=== PATIENT | male | born 1950 | race Caucasian/White ===

== ENCOUNTER → 2016-09-11 | Outpatient (CLI) | payer MEDICARE, OTHER ==
[~2016-09-11] MED LIST: ASPI81TA85 PO; CIPR500T89 PO; DOCU10CA PO; PERC5TAB6 PO
== END ==
LOC: M WUC 15:32
PROVIDERS: ATTEND Urology
DX: C61 Malignant neoplasm of prostate (principal)

== ENCOUNTER → 2016-12-05 | Outpatient (CLI) | payer MEDICARE, OTHER ==
[2016-12-11 00:19] LABS: BABESIOSIS LEVEL IGG <1:10 (Neg:<1:10); BABESIOSIS LEVEL IGM <1:10 (Neg:<1:10); Lyme Disease IgG/IgM Antibodie <0.91 ISR (0.00-0.90); Lyme Disease IgM Ab Quantitati <0.80 index (0.00-0.79)
== END ==
LOC: M LAB 17:52
PROVIDERS: ATTEND Physician Assistant
DX: J06.9 Acute upper respiratory infection, unspecified (principal)

== ENCOUNTER → 2016-12-11 | Outpatient (CLI) | payer MEDICARE, OTHER | LOC: M WUC 13:40 | PROVIDERS: ATTEND Nurse Practitioner Women's Health | DX: R97.21 Rising PSA following treatment for malignant neoplasm of prostate (principal); Z85.46 Personal history of malignant neoplasm of prostate ==

== ENCOUNTER → 2016-12-17 | Outpatient (REF) | payer MEDICARE, OTHER | LOC: M SMT 16:55 | PROVIDERS: ATTEND Urology | DX: C61 Malignant neoplasm of prostate (principal) | CPT/HCPCS: 81001; G0463 ==

== ENCOUNTER 2017-09-24 10:49 | Emergency (ER) | payer OTHER, MEDICARE, SELFPAY | END 2017-09-24 13:45 | disposition home or self-care (01) | LOC: M ED 10:49 | DX: Z04.1 Encounter for examination and observation following transport accident (principal); S16.1XXA Strain of muscle, fascia and tendon at neck level, initial encounter; V43.62XA Car passenger injured in collision with other type car in traffic accident, initial encounter; Z79.82 Long term (current) use of aspirin; Z88.2 Allergy status to sulfonamides; Z88.1 Allergy status to other antibiotic agents; Z88.8 Allergy status to other drugs, medicaments and biological substances | CPT/HCPCS: 72125 ==

== ENCOUNTER → 2017-12-17 | Outpatient (CLI) | payer MEDICARE, OTHER ==
[2017-12-17 13:51] LABS: PROSTATIC SPECIFIC AG MONITOR < 0.01 NG/ML (< 4.0)
== END ==
LOC: M SMT 12:01
DX: C61 Malignant neoplasm of prostate (principal)
CPT/HCPCS: 84153

== ENCOUNTER → 2018-06-19 | Outpatient (REF) | payer MEDICARE, OTHER ==
[2018-06-19 18:37] LABS: PROSTATIC SPECIFIC AG MONITOR < 0.0 NG/ML (< 4.0)
== END ==
LOC: M SMT 17:14
DX: Z85.46 Personal history of malignant neoplasm of prostate (principal)
CPT/HCPCS: 84153

== ENCOUNTER → 2018-12-18 | Outpatient (CLI) | payer MEDICARE, OTHER ==
[~2018-12-18] MED LIST changes: +CIPR-249 PO; -CIPR500T89 PO; +CYCL5TAB PO; +DIAZ2TAB PO; +PERC5TAB12 PO; -PERC5TAB6 PO
== END ==
LOC: M SMT 09:52
PROVIDERS: ATTEND Nurse Practitioner Women's Health
DX: Z85.46 Personal history of malignant neoplasm of prostate (principal)

== ENCOUNTER → 2018-12-25 | Outpatient (REF) | payer MEDICARE, OTHER ==
[2018-12-25 13:32] LABS: APPEARANCE, URINE CLEAR (CLEAR); BACTERIA, URINE AUTO NEGATIVE (NEGATIVE); BILIRUBIN, URINE AUTO NEGATIVE (NEGATIVE); BLOOD, URINE BLOOD NEGATIVE (NEGATIVE); COLOR, URINE YELLOW (YELLOW); GLUCOSE, URINE (UA) AUTO NEGATIVE (NEGATIVE); KETONE, URINE AUTO NEGATIVE (NEGATIVE); LEUKOCYTE ESTERASE, URINE AUTO NEGATIVE (NEGATIVE); MUCUS, URINE SMALL (NEGATIVE); NITRITE, URINE AUTO NEGATIVE (NEGATIVE); PROTEIN, URINE AUTO NEGATIVE (NEGATIVE); RBC, URINE AUTO 0 /HPF (0-3); SPECIFIC GRAVITY URINE AUTO 1.023 (1.002-1.035); SQUAMOUS EPITHELIAL CELL UR AU 0 /HPF (0-6); UROBILINOGEN, URINE AUTO 0.2 mg/dL (0.0-2.0); WBC, URINE AUTO 1 /HPF (0-3)
== END ==
LOC: M SMT 13:11
PROVIDERS: ATTEND Nurse Practitioner Women's Health
DX: R35.0 Frequency of micturition (principal)
CPT/HCPCS: 81001; 87086; G0463

== ENCOUNTER → 2019-05-01 | Outpatient (REF) | payer MEDICARE, OTHER ==
[2019-05-01 13:25] LABS: SYNOVIAL FLUID COLOR RED (YELLOW)
[2019-05-01 13:38] LABS: CRYSTALS, BODY FLUID NONE SEEN (NONE SEEN)
[2019-05-01 13:42] LABS: URIC ACID, BODY FLUID 5.3 MG/DL (NOT ESTABLISHED)
[2019-05-01 13:43] LABS: BODY FLUID RHEUMATOID SCREEN NEGATIVE (NEGATIVE); MUCIN CLOT TEST NO CLOT (4+)
[2019-05-01 13:45] LABS: SOURCE, BODY FLUID OTHER
== END ==
LOC: M LAB REF 13:08
PROVIDERS: ATTEND Physician Assistant Surgical
DX: M70.22 Olecranon bursitis, left elbow (principal); M17.2 Bilateral post-traumatic osteoarthritis of knee; M23.222 Derangement of posterior horn of medial meniscus due to old tear or injury, left knee

== ENCOUNTER → 2019-06-16 | Outpatient (CLI) | payer MEDICARE, OTHER | LOC: M SMT 14:37 | PROVIDERS: ATTEND Nurse Practitioner Women's Health | DX: Z85.46 Personal history of malignant neoplasm of prostate (principal) ==

== ENCOUNTER → 2019-12-17 | Outpatient (CLI) | payer MEDICARE, OTHER | LOC: M WUC 11:49 | PROVIDERS: ATTEND Nurse Practitioner Women's Health | DX: Z85.46 Personal history of malignant neoplasm of prostate (principal) ==

== ENCOUNTER → 2020-05-06 | Outpatient (REF) | payer MEDICARE, OTHER ==
[~2020-05-06] MED LIST changes: -ASPI81TA85 PO; +ASPI81TA86 PO
[2020-05-06 14:14] LABS: APPEARANCE, URINE CLEAR (CLEAR); BACTERIA, URINE AUTO NEGATIVE (NEGATIVE); BILIRUBIN, URINE AUTO NEGATIVE (NEGATIVE); BLOOD, URINE BLOOD NEGATIVE (NEGATIVE); COLOR, URINE YELLOW (YELLOW); GLUCOSE, URINE (UA) AUTO NEGATIVE (NEGATIVE); KETONE, URINE AUTO NEGATIVE (NEGATIVE); LEUKOCYTE ESTERASE, URINE AUTO NEGATIVE (NEGATIVE); MUCUS, URINE SMALL (NEGATIVE); NITRITE, URINE AUTO NEGATIVE (NEGATIVE); PROTEIN, URINE AUTO NEGATIVE (NEGATIVE); RBC, URINE AUTO 1 /HPF (0-3); SPECIFIC GRAVITY URINE AUTO 1.025 (1.002-1.035); SQUAMOUS EPITHELIAL CELL UR AU 0 /HPF (0-6); UROBILINOGEN, URINE AUTO 0.2 mg/dL (0.0-2.0); WBC, URINE AUTO 0 /HPF (0-3)
== END ==
LOC: M SMT 13:21
PROVIDERS: ATTEND Nurse Practitioner Women's Health
DX: R30.0 Dysuria (principal)

== ENCOUNTER → 2020-12-13 | Outpatient (REF) | payer MEDICARE, OTHER | LOC: M PLALAB 12:42 | PROVIDERS: ATTEND Nurse Practitioner Women's Health | DX: Z85.46 Personal history of malignant neoplasm of prostate (principal) ==

== ENCOUNTER → 2021-12-22 | Outpatient (CLI) | payer MEDICARE, OTHER | LOC: M WUC 13:12 | PROVIDERS: ATTEND Nurse Practitioner Women's Health | DX: Z85.46 Personal history of malignant neoplasm of prostate (principal) ==

== ENCOUNTER → 2022-12-20 | Outpatient (CLI) | payer MEDICARE, OTHER | LOC: M LAB 17:23 | PROVIDERS: ATTEND Nurse Practitioner Women's Health | DX: Z85.46 Personal history of malignant neoplasm of prostate (principal) ==

== ENCOUNTER → 2023-12-26 | Outpatient (REF) | payer MEDICARE, OTHER | LOC: M LABWUC 11:52 | PROVIDERS: ATTEND Physician Assistant | DX: Z85.46 Personal history of malignant neoplasm of prostate (principal) ==

== ENCOUNTER → 2024-09-16 | Outpatient (CLI) | payer MEDICARE, OTHER ==
[~2024-09-16] MED LIST changes: -CYCL5TAB PO; +CYCL5TAB4 PO
== END ==
LOC: M SLEEP 20:00
PROVIDERS: ATTEND Physician Assistant
DX: R40.0 Somnolence (principal); R06.83 Snoring

== ENCOUNTER 2025-04-09 05:56 | Day surgery (SDC) | payer MEDICARE, OTHER ==
[~2025-04-09] VITALS: Ht 167.6 cm; Wt 91.5 kg
[~2025-04-09 05:56] MED LIST changes: +FAMO40TA3 PO; +LATA1DRO OU; +MULT80TA PO
[2025-04-09] MEDS: LR 1,000 ML IV SCH (07:00)
[2025-04-09] MEDS ORDERED: LIDOCAINE 2% 100 MG/5 ML SDV (FOR ANES.) As Ordered ONE (07:20)
[2025-04-09] MEDS ORDERED: LIDOCAINE 5% OINT 30 GM TUBE As Ordered ONE (07:20)
[2025-04-09] MEDS ORDERED: dexAMETHasone 4 MG/ML 1 ML VIAL As Ordered ONE (07:20)
[2025-04-09] MEDS ORDERED: ONDANSETRON 4MG 2ML VIAL As Ordered ONE (07:20)
[2025-04-09] MEDS ORDERED: MIDAZOLAM INJ 2 MG/2 ML VIAL As Ordered ONE (07:21)
[2025-04-09] MEDS: ceFAZolin SOD 2 GM IV ONCE IV ONE (07:48)
[2025-04-09] MEDS: ISOVUE-300 61% 100 ML VIAL As Ordered ONE (07:59)
[2025-04-09] MEDS ORDERED: ACETAMINOPHEN 1000MG/100ML IV BAG As Ordered ONE (07:59)
[2025-04-09] MEDS ORDERED: PERCOCET 5MG/325MG TAB PO PRN (09:10)
[2025-04-09] MEDS ORDERED: OXYB5TAB14 PO (09:22)
[2025-04-09] MEDS ORDERED: OXYC1TAB23 PO (09:22)
[2025-04-09 10:11] VITALS: TEMP 97.9; O2SAT 99
[2025-04-09] MEDS: ONDANSETRON 4MG 2ML VIAL IV PRN (10:55)
[2025-04-09] MEDS: KETOROLAC 30 MG/ML 1 ML VIAL IV ONE (10:56)
[2025-04-09 11:32] VITALS: BP 158/80
== END 2025-04-09 11:31 | disposition home or self-care (01) ==
LOC: M SDC 05:56
PROVIDERS: ATTEND Urology
DX: N13.1 Hydronephrosis with ureteral stricture, not elsewhere classified (principal); Z88.8 Allergy status to other drugs, medicaments and biological substances; Z79.899 Other long term (current) drug therapy
CPT/HCPCS: 52332; 52351; 74420; C1769; C1894; C2617; J0131; J0690; J1100; J1885; J2250; J2405; J3010

== ENCOUNTER → 2025-04-23 | Outpatient (REF) | payer MEDICARE, OTHER ==
[~2025-04-23] MED LIST changes: +OXYB5TAB14 PO; +OXYC1TAB23 PO
[2025-04-23 14:31] LABS: APPEARANCE, URINE HAZY (CLEAR); BACTERIA, URINE AUTO 1+ (NEGATIVE); BILIRUBIN, URINE AUTO NEGATIVE (NEGATIVE); BLOOD, URINE BLOOD 2+ (NEGATIVE); GLUCOSE, URINE (UA) AUTO NEGATIVE (NEGATIVE); KETONE, URINE AUTO NEGATIVE (NEGATIVE); LEUKOCYTE ESTERASE, URINE AUTO 2+ (NEGATIVE); MUCUS, URINE SMALL (NEGATIVE); NITRITE, URINE AUTO NEGATIVE (NEGATIVE); PROTEIN, URINE AUTO 2+ mg/dL (NEGATIVE); RBC, URINE AUTO 83 /HPF (0-3); SPECIFIC GRAVITY URINE AUTO 1.020 (1.002-1.035); SQUAMOUS EPITHELIAL CELL UR AU 0 /HPF (0-6); UROBILINOGEN, URINE AUTO 0.2 mg/dL (0.0-2.0); WBC, URINE AUTO 45 /HPF (0-3)
== END ==
LOC: M SMT 13:22
PROVIDERS: ATTEND Urology
DX: N39.0 Urinary tract infection, site not specified (principal)

== ENCOUNTER → 2025-07-06 | Outpatient (CLI) | payer MEDICARE, OTHER | LOC: M RAD 13:50 | PROVIDERS: ATTEND Urology | DX: N13.5 Crossing vessel and stricture of ureter without hydronephrosis (principal) ==